=== PATIENT | male | born 1960 | race Caucasian/White ===

== ENCOUNTER 2019-01-01 19:00 | Emergency (ER) | payer BC, SELFPAY ==
[2019-01-01 19:01] VITALS: BP 140/85; PULSE 88; RESP 16; TEMP 36.1; O2SAT 99; BMI 29.5
--- NOTE | 2019-01-01 19:05 | RAD_ITS ---
STUDY: X-RAY - LEFT FOOT CLINICAL: Male, 58 years old. Lateral foot pain TECHNIQUE: 3 view(s) of the foot. COMPARISON: None. FINDINGS: Normal talus, calcaneus, and tarsal bones. Normal visualized subtalar, talonavicular, calcaneocuboid, tarsal and tarsometatarsal articulations. Normal metatarsi. Normal metatarsophalangeal joint of the great toe. Normal tibial and fibular sesamoid bones. Normal interphalangeal joint of the great toe. Normal phalanges of the great toe. Normal second through fifth metatarsophalangeal joints. Normal interphalangeal joints and phalanges of the lesser toes. The soft tissue structures are unremarkable. RAD/Foot min 3 Views IMPRESSION: Normal x-ray examination of the foot. Electronically Signed: Jair Millard MD at 19:27 EDT , Service support ,
--- NOTE | 2019-01-01 19:06 | ED.VIS.GEN ---
History of Present Illness Chief Complaint: Lower Extremity Injury Informant: Patient Onset: Yesterday Context: Gradual Onset Timing: Continuous Current Severity: Moderate Maximum Severity: Moderate Narrative: The patient presents to the emergency department for left foot pain. Patient states yesterday, he had a dull ache on the lateral aspect of his foot. He states he went to work overnight. He states that the foot was throbbing. Today, the pain had worsened. He has not taken anything for it. He has a history of gout, but states he has had it in the toe, but never in the foot. He cannot recall any definitive trauma. The patient is otherwise healthy. Prior similar symptoms: Yes Recent Illness/Hospitalization: No Past Medical History - Allergies and Home Meds Allergies/Adverse Reactions: Allergies tetracycline Allergy (Verified 01/01/19 19:01) Hives Primary Care Physician: Don Prakash MD [Primary Care Provider] - Prior records reviewed: Yes Past Medical History: None Surgical History: no surgical history Review of Systems General: Denies: Chills, Fever, Sweats Eyes: Denies: Visual changes - bilaterally, Diplopia ENT: Denies: Rhinorrhea, Sore throat Cardiovascular: Denies: Chest pain, Palpitations Respiratory: Denies: Dyspnea, Cough, Dyspnea on exertion Gastrointestinal: Denies: Abdominal pain, Nausea, Vomiting, Diarrhea, Melena, Hematochezia Genitourinary: Denies: Dysuria, Hematuria, Frequency Musculoskeletal: Denies: Back pain, Extremity Pain Skin: Denies: Rash, Wounds Neurological: Denies: Headache, Weakness, Numbness Physical Exam Vital Signs/Narrative: Vital Signs Temp Pulse Resp BP Pulse Ox 01/01/19 19:01 97 F L 88 16 140/85 H 99 Inital Vital Signs reviewed: Yes General: Well nourished, Well developed, No Acute Distress Head: Normocephalic, Atraumatic Eyes: Perrl, EOMI ENT: Moist mucous membranes, No rhinorrhea Neck: Supple, Nontender Cardiovascular: Regular rate, Regular rhythm, No murmurs Respiratory: No distress, CTA bilaterally, Chest nontender Abdomen: Soft, Nontender, Nondistended, Normal bowel sounds Back: Nontender, Normal Inspection Extremities: Tenderness, Edema - Mild erythema on the lateral aspect of the left foot. Normal pulses. Skin is intact. No streaking. Calves are soft. Skin: Normal color, No rash Neurological: Alert, Oriented x3, Cranial nerves II-XII grossly intact, Normal Strength, Normal Sensation Psychological: Normal affect, Normal Mood Diagnostic/Tx/Re-eval Clinical Impression(s) from Imaging Studies Foot X-Ray 01/01/19 19:05 IMPRESSION: Normal x-ray examination of the foot. Electronically Signed: Jair Millard MD at 19:27 EDT , Service support , - Medical Decision Making The patient symptoms do seem consistent with gout. He has no trauma. I did obtain plain films. These were unremarkable. I am going to treat the patient with prednisone and analgesics. I did counselor aid him concerning symptoms and reasons to return. He will be discharged home. Impression 1. Acute gouty arthritis of the left foot ED Disposition - Plan for ED Patient: Disposition: Home or Assisted Living Instructions: Gouty Arthritis Prescriptions: Prednisone [Deltasone] 60 mg PO DAILY #15 tab Prescription Printed Hydrocodone Bitart/Apap 5-325 [[place] 5MG-325MG] 1 tab PO Q6H PRN PRN 3 Days #10 tab PRN Reason: Pain Prescription Printed Referrals: Don Prakash MD [Primary Care Provider] -
[2019-01-01] MEDS: predniSONE 20 MG Tablet 60 MG PO (20:07)
[2019-01-01 20:10] VITALS: BP 136/84; PULSE 82; RESP 17; O2SAT 98
== END 2019-01-01 20:11 | disposition home or self-care (01) ==
LOC: ED 19:34
PROVIDERS: Emergency Provider Emergency Medicine; Family Provider Family Medicine; PCP Family Medicine
DX: M10.9 Gout, unspecified (principal)
CPT/HCPCS: 73630; 99283

== ENCOUNTER 2019-07-31 19:12 | Emergency (ER) | payer BC, SELFPAY ==
[2019-07-31 19:14] VITALS: BP 119/71; PULSE 91; RESP 15; TEMP 35.6; O2SAT 97; BMI 30.3
--- NOTE | 2019-07-31 19:41 | ED.VISSUMM ---
- ER Visit Summary Date of Service: 07/31/19 Chief Complaint: Dental pain History of Present Illness: The patient is a 58 M presenting with right lower dental pain which started today. He states he felt his filling fall out 2 weeks ago. He started having pain in his right lower molar today. He was unable to get into his dentist today. He has not taken any medication prior to arrival. He denies fever or swelling. Denies other complaints. Physical Examination: Vitals are stable. Patient is afebrile. Alert no acute distress. HEENT exam is right lower molar filling dislodged. There is no surrounding fluctuance. No sublingual edema. Neck is supple. Lungs are clear and equal bilaterally. Heart is regular rate and rhythm. Extremities are unremarkable. Skin is warm and dry. Remainder of exam is unremarkable. Emergency Department Course and Treatment: Cavit was applied. Patient had improvement of his pain. He is given a short course of [place]. Advised to follow-up with his dentist tomorrow. Advised return to the ED for worsening complaints. Disposition: Discharge home Impression: Odontalgia This note was generated with [employer] dictation software. It may contain incorrect words, spelling, and punctuation that were not noted in review of the chart prior to signing ED Disposition - Plan for ED Patient: Referrals: Don Prakash MD [Primary Care Provider] -
--- NOTE | 2019-07-31 19:44 | ED.DEP ---
ED Disposition - Plan for ED Patient: Instructions: ED Tooth Pain Prescriptions: Hydrocodone Bitart/Apap 5-325 [[place] 5MG-325MG] 1 tablet PO Q4H PRN PRN 2 Days #6 tablet PRN Reason: Pain Referrals: Don Prakash MD [Primary Care Provider] -
[2019-07-31 19:55] VITALS: BP 120/70; PULSE 83; RESP 17; O2SAT 95
== END 2019-07-31 19:56 | disposition home or self-care (01) ==
LOC: ED 19:45
PROVIDERS: Emergency Provider Emergency Medicine; PCP Family Medicine
DX: K08.89 Other specified disorders of teeth and supporting structures (principal)
CPT/HCPCS: 99282

== ENCOUNTER 2021-03-05 10:54 | Emergency (ER) | payer BC, SELFPAY ==
[2021-03-05 10:55] VITALS: BP 110/71; PULSE 93; RESP 17; TEMP 36.1; O2SAT 100; BMI 28.3
--- NOTE | 2021-03-05 11:41 | EDS_ITS ---
HPI History of Present Illness Chief Complaint: Lower Extremity Injury Informant: patient Narrative Narrative: Patient has a right great toe pain. He states he has had gout before. This is the same toe he has had it in. He had asked the same. It sounds like he had some colchicine left over that he took about 2 or 3 days ago. This stopped the symptoms but then it came back. No fevers or chills. No spreading up the leg. No recent skin or dental infections. Motion or touching makes it worse. The meds he took at home made it better. He has been on steroids successfully before. [facility] Medical History (Updated 03/05/21 @ 11:[address] Steven Kahn MD) Gout Home Medications oxycodone-acetaminophen [Percocet] 1 tab PO Q6H PRN 2 Days #8 tab 03/05/21 [Rx Last Taken Unknown] prednisone 60 mg PO DAILY #15 tab 03/05/21 [Rx Last Taken Unknown] Allergy/AdvReac Type Severity Reaction Status Date / Time tetracycline Allergy Hives Verified 03/05/21 10:55 Social History Smoking Status: Never smoker ROS ROS ED Constitutional Constitutional ED: Denies chills, fever(s) or sweats ENT ENT ED: Denies sore throat Cardiovascular Cardiovascular: Denies chest pain Respiratory/Chest Respiratory/Chest: Denies cough Gastrointestinal Gastrointestinal: Denies nausea or vomiting Musculoskeletal Musculoskeletal: Reports arthralgias and other Details: See history of present illness. ; Denies back pain, myalgias or neck pain Integumentary Denies abscess or rash Neurologic Neurologic: Denies paresthesias or weakness Endocrine Endocrinology: Denies polydipsia or polyuria Hematologic/Lymphatic Hematologic/Lymphatic: Denies easy bleeding or easy bruising EXAM Physical Exam Const Vital Signs: 03/05/21 10:55 Temperature 96.9 F L Temperature Source Temporal Pulse Rate 93 Respiratory Rate 17 Blood Pressure 110/71 Blood Pressure Mean 84 Pulse Ox 100 Oxygen Delivery Method Room Air Positive well nourished and well developed General Appearance ED: well developed and NAD HEENT normocephalic and atraumatic Resp normal respiratory effort Back/Spine no CVA tenderness Lumbar Spine / Lower Back: Negative for lumbar spinal tenderness Extremity Extremity Narrative: There is some erythema and maybe slight swelling to his first MTP on the right. Is not warm to palpate though. No sign of abscess. This is the same spot he has had gout in several other times. General Extremety ED: Negative for cyanosis or edema General Extremity: Negative for cyanosis or edema Neuro oriented x3 Sensorium / Orientation: alert Psych mental status grossly normal Skin Skin Narrative: No laceration abrasion or abscess. Lesions: no lesions Rashes: no rashes MDM MDM MDM Narrative Medical decision making narrative: I will give the patient dose of colchicine here. We will get him started on steroids. He should keep the area warm. I will give him a few opioid pills. His online prescribing report shows a single prescription over a year ago. I do not think he is seeking narcotics. He should return with fevers chills swelling or other problems. Discharge Plan Triage Chief Complaint: Lower Extremity Injury ED Provider: Steven Kahn Dx/Rx/DC Orders Clinical Impression: Gout involving toe of right foot Instructions: ED Gout Prescriptions: New prednisone 20 MG tablet 60 mg PO DAILY Qty: 15 RF: 0 oxycodone-acetaminophen [Percocet] 5-325 mg tablet 1 tab PO Q6H PRN (Reason: pain) 2 Days Qty: 8 RF: 0 Primary Care Provider: Don Prakash Referrals: Don Prakash MD [Primary Care Provider] - 3-5 Days if not improving Disposition Disposition: Home, Self Care
[2021-03-05] MEDS: Colchicine 0.6 MG TABLET 1.2 MG PO (12:13)
[2021-03-05 12:15] VITALS: PULSE 96; RESP 17; O2SAT 100
== END 2021-03-05 12:16 | disposition home or self-care (01) ==
PROVIDERS: Emergency Provider Emergency Medicine; PCP Family Medicine
DX: M10.9 Gout, unspecified (principal)
CPT/HCPCS: 99283

== ENCOUNTER 2022-07-30 16:09 | Emergency (ER) | payer BC, SELFPAY ==
[2022-07-30 16:10] VITALS: BP 141/90; PULSE 95; RESP 16; TEMP 36.8; O2SAT 98; BMI 29.5
--- NOTE | 2022-07-30 16:47 | EX.ED.DYSGE1 ---
HPI <DHIRAJ Sanchez - Last Filed: 07/30/22 17:41> History of Present Illness Chief Complaint: Wound Narrative Narrative: Patient is a 61-year-old male with history of gout who presents to the emergency department with rash, concern for infection to the left leg. 2 weeks ago, patient was doing some yard work, he is wearing shorts. He did get brushed by multiple twigs, branches to his left lower leg, he also was around poison john. Patient states that started with a rash, however now he has significant redness, open sores to his left lower extremity. He also has significant swelling to his left lower leg. Patient denies any fevers however did have subjective chills 1 week ago. He was working all day today, and states that the pain is getting worse. <Dr. Joselo León DO - Last Filed: 07/30/22 23:57> Narrative Narrative: Patient is a 61-year-old male with history of gout who presents to the emergency department with rash, concern for infection to the left leg. 2 weeks ago, patient was doing some yard work, he is wearing shorts. He did get brushed by multiple twigs, branches to his left lower leg, he also was around poison john. Patient states that started with a rash, however now he has significant redness, open sores to his left lower extremity. He also has significant swelling to his left lower leg. Patient denies any fevers however did have subjective chills 1 week ago. He was working all day today, and states that the pain is getting worse. [facility] <DHIRAJ Sanchez - Last Filed: 07/30/22 17:41> [facility] Medical History (Updated 07/30/22 @ 17:38 by DHIRAJ Sanchez) Gout Home Medications oxycodone-acetaminophen 5 mg-325 mg tablet (Percocet) 1 tab PO Q6H PRN pain 2 days #8 tabs 03/05/21 [Rx Last Taken Unknown] prednisone 20 mg tablet 60 mg PO DAILY #15 tabs 03/05/21 [Rx Last Taken Unknown] cephalexin 500 mg capsule 500 mg PO Q6 10 days #40 CAPSULES 07/30/22 [Rx Last Taken Unknown] sulfamethoxazole 800 mg-trimethoprim 160 mg tablet (Bactrim DS) 1 tab PO BID 10 days #20 tabs 07/30/22 [Rx Last Taken Unknown] Allergy/AdvReac Type Severity Reaction Status Date / Time tetracycline Allergy Hives Verified 07/30/22 16:13 Social History Smoking Status: Never smoker ROS <Jeffery Arthurjessica POOL NURSE-C - Last Filed: 07/30/22 17:41> [facility] ED ROS Narrative Constitutional: Negative for fever, weight loss, weakness. Positive for chills Eyes: Negative for vision loss, vision change, double vision ENT: Negative for any sore throat, ear pain, congestion Cardiovascular: Negative for any chest pain, tightness, palpitations Respiratory: Negative for any cough, sputum production, hemoptysis, dyspnea, dyspnea on exertion, orthopnea Gastrointestinal: Negative for any abdominal pain, nausea, vomiting, diarrhea, constipation, blood in stool, blood in vomit : Negative for any urinary frequency, dysuria, retention, blood in urine Muscle skeletal: Negative for any muscle joint pain, stiffness, myalgias, arthralgias, neck pain, back pain. Positive left leg pain, left leg edema Neurological: Negative for any headache, syncope, numbness or tingling, dizziness Skin: Negative for any rashes, lumps, itching, abrasions, lacerations. Patient does have cellulitis, open sores throughout the anterior lower leg below the knee. Patient does have scabbed area to the left mid thigh, redness and edema. This is consistent with cellulitis. Patient also has a small area of rash to the lateral malleolus of the right leg however there is no significant redness. Patient has no neurological focal deficit. Psychiatric: Negative for any depression, anxiety, stress, suicidal ideation, homicidal ideation Hematologic: Negative for any easy bruising, excessive bruising, easy bleeding Allergies: Negative for any eczema, hives, rash <Dr. Joselo León DO - Last Filed: 07/30/22 23:57> ROS ED ROS Narrative Constitutional: Negative for fever, weight loss, weakness. Positive for chills Eyes: Negative for vision loss, vision change, double vision ENT: Negative for any sore throat, ear pain, congestion Cardiovascular: Negative for any chest pain, tightness, palpitations Respiratory: Negative for any cough, sputum production, hemoptysis, dyspnea, dyspnea on exertion, orthopnea Gastrointestinal: Negative for any abdominal pain, nausea, vomiting, diarrhea, constipation, blood in stool, blood in vomit : Negative for any urinary frequency, dysuria, retention, blood in urine Muscle skeletal: Negative for any muscle joint pain, stiffness, myalgias, arthralgias, neck pain, back pain. Positive left leg pain, left leg edema Neurological: Negative for any headache, syncope, numbness or tingling, dizziness Skin: negative for lumps, itching, abrasions, lacerations. Patient does have cellulitis, open sores throughout the anterior lower leg below the knee. Patient does have scabbed area to the left mid thigh, redness and edema. This is consistent with cellulitis. Patient also has a small area of rash to the lateral malleolus of the right leg however there is no significant redness. Patient has no neurological focal deficit. Psychiatric: Negative for any depression, anxiety, stress, suicidal ideation, homicidal ideation Hematologic: Negative for any easy bruising, excessive bruising, easy bleeding Allergies: Negative for any eczema, hives, rash EXAM <DHIRAJ Sanchez - Last Filed: 07/30/22 17:41> Physical Exam Narrative Exam Narrative: Vital signs reviewed. HEET: Head normocephalic atraumatic, TMs clear bilaterally. Posterior pharynx is clear, moist mucous membranes. Nares clear bilaterally. Neck: Supple with no lymphadenopathy or tenderness. No signs of meningismus, negative jolt sign. Cardiac: Regular rate and rhythm no murmurs gallops or rubs, equal peripheral pulses bilaterally. Respiratory: Lungs clear to auscultation bilaterally. No chest tenderness. Abdomen: Soft, nontender, nondistended. No abdominal bruit or pulsatile masses. No hepatosplenomegaly Extremities: Patient has significant cellulitis to the anterior lower extremity with ulcerations. This redness does spread past the knee, into the groin. It is circumferential. No neurological focal deficit. There is drainage from the ulcers. There is an area of scabs to the left lateral leg just above the knee. There is significant difference between the left and right leg.. Active full range of motion of all extremities. Neuro: Cranial nerves II through XII intact, no focal neurological deficits. Skin: Clean dry and intact with no rash, purpura, petechiae, vesicles or pustules. Backs/flank: No CVA tenderness, no midline spinal tenderness, no deformity. Psych: Normal mood and affect. No SI, HI or acute psychosis. Const Vital Signs: 07/30/22 16:10 07/30/22 17:54 Temperature 98.3 F 97.8 F Temperature Source Temporal Pulse Rate 95 78 Respiratory Rate 16 16 Blood Pressure 141/90 H 134/78 H Blood Pressure Mean 107 Pulse Ox 98 99 Oxygen Delivery Method Room Air <Dr. Joselo León DO - Last Filed: 07/30/22 23:57> Physical Exam Narrative Exam Narrative: Vital signs reviewed. HEET: Head normocephalic atraumatic, TMs clear bilaterally. Posterior pharynx is clear, moist mucous membranes. Nares clear bilaterally. Neck: Supple with no lymphadenopathy or tenderness. No signs of meningismus, negative jolt sign. Cardiac: Regular rate and rhythm no murmurs gallops or rubs, equal peripheral pulses bilaterally. Respiratory: Lungs clear to auscultation bilaterally. No chest tenderness. Abdomen: Soft, nontender, nondistended. No abdominal bruit or pulsatile masses. No hepatosplenomegaly Extremities: Patient has significant cellulitis to the anterior lower extremity with ulcerations. This redness does spread past the knee, into the groin. It is circumferential. No neurological focal deficit. There is drainage from the ulcers. There is an area of scabs to the left lateral leg just above the knee. There is significant difference between the left and right leg.. Active full range of motion of all extremities. Neuro: Cranial nerves II through XII intact, no focal neurological deficits. Skin: Please refer to attending exam Backs/flank: No CVA tenderness, no midline spinal tenderness, no deformity. Psych: Normal mood and affect. No SI, HI or acute psychosis. Const Vital Signs: 07/30/22 16:10 07/30/22 17:54 Temperature 98.3 F 97.8 F Temperature Source Temporal Pulse Rate 95 78 Respiratory Rate 16 16 Blood Pressure 141/90 H 134/78 H Blood Pressure Mean 107 Pulse Ox 98 99 Oxygen Delivery Method Room Air MDM <DHIRAJ Sanchez - Last Filed: 07/30/22 17:41> [facility] Lab Data Attestation: I reviewed the patient's lab results. Labs: Laboratory Results - last 24 hr 07/30/22 07/30/22 16:35 16:35 WBC 8.7 RBC 4.46 L Hgb 12.5 L Hct 38.1 L MCV 85.4 MCH 28.0 MCHC 32.8 RDW Std Deviation 38.8 RDW Coeff of Aidan 12.4 Plt Count 261 MPV 10.1 Immature Gran % (Auto) 0.300 Neut % (Auto) 66.4 Lymph % (Auto) 17.1 L Towns % (Auto) 10.8 H Eos % (Auto) 4.7 Baso % (Auto) 0.7 Absolute Neuts (auto) 5.8 Absolute Lymphs (auto) 1.49 Nucleated RBC % 0 Sodium 137 Potassium 3.6 Chloride 108 H Carbon Dioxide 25.0 Anion Gap 4 L BUN 20 H Creatinine 0.82 Estim Creat Clear Calc 112.77 Est GFR (MDRD) Af Amer 124 Est GFR (MDRD) Non-Af 103 BUN/Creatinine Ratio 24.5 H Glucose 105 Calcium 8.5 Treatment and Re-Evaluation :: Patient appears generally well, patient appears nontoxic, vital signs are stable. Patient presents to the emergency department with concern for infection to the left leg. Patient's physical examination is consistent with significant infection to the left lower extremity that radiates from the foot all the way up to the inner thigh. I merely spoke with the patient regarding admission however he states he was unsure and wanted to see what his blood work would show. Patient's laboratory values were unremarkable, no new leukocytosis. Patient meets no SIRS criteria. Patient did receive IV fluids, IV Unasyn 3 g. After laboratory values returned, I did speak with the patient at length. I spoke with the patient regarding the need for admission. I told him that there are risks of leaving with an infection. I spoke with the patient being admitted getting IV antibiotics. We used shared decision making, patient states he would like to go home, he does not live far and if he gets worse he will come right back. I did explain to the patient that he is risking his leg, his health regarding leaving without IV antibiotics. He verbally understood. He understands that he should stay however he wants to go home. At this time, the patient be placed on Bactrim, Keflex. He is instructed to return for any worsening signs or symptoms of infection. Patient discharged. <Dr. Joselo León, DO - Last Filed: 07/30/22 23:57> [facility] Lab Data Labs: Laboratory Results - last 24 hr 07/30/22 07/30/22 16:35 16:35 WBC 8.7 RBC 4.46 L Hgb 12.5 L Hct 38.1 L MCV 85.4 MCH 28.0 MCHC 32.8 RDW Std Deviation 38.8 RDW Coeff of Aidan 12.4 Plt Count 261 MPV 10.1 Immature Gran % (Auto) 0.300 Neut % (Auto) 66.4 Lymph % (Auto) 17.1 L Towns % (Auto) 10.8 H Eos % (Auto) 4.7 Baso % (Auto) 0.7 Absolute Neuts (auto) 5.8 Absolute Lymphs (auto) 1.49 Nucleated RBC % 0 Sodium 137 Potassium 3.6 Chloride 108 H Carbon Dioxide 25.0 Anion Gap 4 L BUN 20 H Creatinine 0.82 Estim Creat Clear Calc 112.77 Est GFR (MDRD) Af Amer 124 Est GFR (MDRD) Non-Af 103 BUN/Creatinine Ratio 24.5 H Glucose 105 Calcium 8.5 Treatment and Re-Evaluation :: Patient appears generally well, patient appears nontoxic, vital signs are stable. Patient presents to the emergency department with concern for infection to the left leg. Patient's physical examination is consistent with significant infection to the left lower extremity that radiates from the foot all the way up to the inner thigh. I merely spoke with the patient regarding admission however he states he was unsure and wanted to see what his blood work would show. Patient's laboratory values were unremarkable, no new leukocytosis. Patient meets no SIRS criteria. Patient did receive IV fluids, IV Unasyn 3 g. After laboratory values returned, I did speak with the patient at length. I spoke with the patient regarding the need for admission. I told him that there are risks of leaving with an infection. I spoke with the patient being admitted getting IV antibiotics. We used shared decision making, patient states he would like to go home, he does not live far and if he gets worse he will come right back. I did explain to the patient that he is risking his leg, his health regarding leaving without IV antibiotics. He verbally understood. He understands that he should stay however he wants to go home. At this time, the patient be placed on Bactrim, Keflex. He is instructed to return for any worsening signs or symptoms of infection. Patient discharged. ED attending note: I evaluated the patient in conjunction with the GUMARO.? I agree with his/her statements and above findings. I have personally performed a face to face assessment of the patient and have reviewed the [facility] Note. I performed a substantive portion of the visit including all aspects of the following.? I personally saw the patient performed chart review, physical exam, reviewed labs, imaging (if obtained), and formulated a treatment and management plan. Exam: Nursing triage notes reviewed, Vital signs reviewed Constitutional: please see mdm Lungs: Clear to auscultation,? No wheezing or rales.? No increased work of breathing, no conversational dyspnea, no accessory muscle use, no nasal flaring.? No respiratory distress noted Heart:? Regular rate and rhythm, No murmurs, No rubs and No gallops, 2+ distal pulses (radial, femoral, posterior tibial) in all extremities Abdomen: Soft, there is no tenderness, rigidity, rebound or guarding, no obvious peritoneal signs, no palpable pulsatile abdominal masses, no auscultated abdominal bruit : No CVAT Extremities: 2+ edema noted left lower extremity, compartments are soft, erythema noted essentially from the ankle to the mid thigh.? No obvious crepitus. Neuro: Intact sensation L1-S1 dermatomal distributions.? Intact 5/5 strength in hip flexion (T12-L3).? Knee extension (L2-L4).? Ankle dorsiflexion (L4-L5).? Ankle plantar flexion (S1).? Great toe extension (L5).? 2+ patellar and Achilles DTRs. Skin: Diffuse erythema, burst bullae, excoriations noted from the ankle to the mid thigh to the left lower extremity MDM/plan: Chief Complaint: External records reviewed: History of gout, last ED visit in 2020 I considered the following differential diagnosis: Cellulitis, necrotizing fasciitis, plant based contact dermatitis Patient did have burst bullae however there is no crepitus, his vitals were stable.? Symptoms have been ongoing for 1.5 weeks, there is no pain on proportion to exam to suggest necrotizing fasciitis.? Patient's clinical exam was likely secondary to poison john/poison oak or other plant based irritant with secondary cellulitic changes.? Did give IV antibiotics and offered patient admission given extent of cellulitis.? Shared decision making was undertaken.? Patient understood risk and benefits of admission versus discharge oral versus IV antibiotics and opted to forego admission and to start oral antibiotics with strict return precautions and close PCP follow-up. The patient was alert and oriented x3 and a capacity make his own medical decisions. Shared decision making: I had a long discussion with the patient and or visitors regarding risk/benefits of further testing or admission. They decided to forego any further testing or admission. They are aware of of the risk/benefits inherent in this decision and have voiced understanding. Factors affecting care: None Social determinants of health: None History obtained from others: None Consults: Possibly internal medicine if patient decides to be admitted. Discharge Plan Triage Chief Complaint: Wound ED Midlevel Provider: Jeffery Jorgensen ED Provider: Joselo León Dx/Rx/DC Orders Clinical Impression: Cellulitis, Leg ulcer Instructions: Cellulitis Dc, ED Cellulitis Prescriptions: New sulfamethoxazole-trimethoprim [Bactrim DS] 800-160 mg tablet 1 tab PO BID 10 Days Qty: 20 0RF cephalexin 500 mg capsule 500 mg PO Q6 10 Days Qty: 40 0RF No Action prednisone 20 MG tablet 60 mg PO DAILY Qty: 15 0RF oxycodone-acetaminophen [Percocet] 5-325 mg tablet 1 tab PO Q6H PRN (Reason: pain) 2 Days Qty: 8 0RF Primary Care Provider: Don Prakash Referrals: Don Prakash MD [Primary Care Provider] - Activity Restrictions/Additional Instructions: We discussed about admission. I did recommend admission however you would like to try it outpatient. Please take the antibiotics as prescribed. You must return to the emergency department for any worsening redness, pain, fever or chills. Take antibiotics until finished. Disposition Disposition: Home, Self Care Discharge Date/Time: 07/30/22 17:55
[2022-07-30] MEDS: 0.9% Normal Saline 1,000 ML 1000 ML IV (16:53)
--- NOTE | 2022-07-30 17:05 | EDS_ITS ---
HPI History of Present Illness Chief Complaint: Wound [facility] Medical History Gout Home Medications oxycodone-acetaminophen 5 mg-325 mg tablet (Percocet) 1 tab PO Q6H PRN pain 2 da ys #8 tabs 03/05/21 [Rx Last Taken Unknown] prednisone 20 mg tablet 60 mg PO DAILY #15 tabs 03/05/21 [Rx Last Taken Unknown] Allergy/AdvReac Type Severity Reaction Status Date / Time tetracycline Allergy Hives Verified 07/30/22 16:13 Social History Smoking Status: Never smoker EXAM Physical Exam Const Vital Signs: 07/30/22 16:10 Temperature 98.3 F Temperature Source Temporal Pulse Rate 95 Respiratory Rate 16 Blood Pressure 141/90 H Blood Pressure Mean 107 Pulse Ox 98 Oxygen Delivery Method Room Air MDM [facility] Treatment and Re-Evaluation :: ED attending note: I evaluated the patient in conjunction with the [facility]. I agree with his/her statements and above findings. I have personally performed a face to face assessment of the patient and have reviewed the [facility] Note. I performed a substantive portion of the visit including all aspects of the following. I personally saw the patient performed chart review, physical exam, reviewed labs, imaging (if obtained), and formulated a treatment and management plan. Exam: Nursing triage notes reviewed, Vital signs reviewed Constitutional: please see mdm Lungs: Clear to auscultation, No wheezing or rales. No increased work of breathing, no conversational dyspnea, no accessory muscle use, no nasal flaring. No respiratory distress noted Heart: Regular rate and rhythm, No murmurs, No rubs and No gallops, 2+ distal pulses (radial, femoral, posterior tibial) in all extremities Abdomen: Soft, there is no tenderness, rigidity, rebound or guarding, no obvious peritoneal signs, no palpable pulsatile abdominal masses, no auscultated abdominal bruit : No CVAT Extremities: 2+ edema noted left lower extremity, compartments are soft, erythema noted essentially from the ankle to the mid thigh. No obvious crepitus. Neuro: Intact sensation L1-S1 dermatomal distributions. Intact 5/5 strength in hip flexion (T12-L3). Knee extension (L2-L4). Ankle dorsiflexion (L4-L5). Ankle plantar flexion (S1). Great toe extension (L5). 2+ patellar and Achilles DTRs. Skin: Diffuse erythema, burst bullae, excoriations noted from the ankle to the mid thigh to the left lower extremity MDM/plan: Chief Complaint: External records reviewed: History of gout, last ED visit in 2020 I considered the following differential diagnosis: Cellulitis, necrotizing fasciitis, plant based contact dermatitis Patient did have burst bullae however there is no crepitus, his vitals were stable. There is no pain on proportion to exam to suggest necrotizing fasciitis. Patient's clinical exam was likely secondary to poison john/poison oak or other plant based irritant with secondary cellulitic changes. Did give IV antibiotics and offered patient admission given extent of cellulitis. Shared decision making was undertaken. Patient understood risk and benefits of admission versus discharge oral versus IV antibiotics and opted to forego admission and to start oral antibiotics with strict return precautions and close PCP follow-up Factors affecting care: None Social determinants of health: None History obtained from others: None Shared decision making: I will have a discussion with the patient and or visitors regarding risk/benefits of further testing or admission. They will be made aware of of the risk/benefits inherent in this decision they will be given the opportunity to voice understanding. Consults: Possibly internal medicine if patient decides to be admitted. Discharge Plan Triage Chief Complaint: Wound ED Midlevel Provider: Jeffery Jorgensen ED Provider: Joselo León Dx/Rx/DC Orders Prescriptions: No Action prednisone 20 MG tablet 60 mg PO DAILY Qty: 15 0RF oxycodone-acetaminophen [Percocet] 5-325 mg tablet 1 tab PO Q6H PRN (Reason: pain) 2 Days Qty: 8 0RF Primary Care Provider: Don Prakash Referrals: Dno Prakash MD [Primary Care Provider] -
[2022-07-30 17:06] LABS: Absolute Lymphocyte Count 1.49 X10^3/uL (0.83-4.51); Absolute Neutrophil Count 5.8 X10^3/uL (2.0-7.7); Basophil# 0.06 X10^3/uL; Basophil% 0.7 % (0-1); Eosinophil# 0.41 X10^3/uL; Eosinophils% 4.7 % (0-5); Hematocrit 38.1 % (40-54); Hemoglobin 12.5 g/dL (13.0-16.5); Lymphocyte # 1.49 X10^3/ul (0.83-4.51); Lymphocyte % 17.1 % (19-41); Mean Corp Hgb Conc 32.8 g/dL (32-36); Mean Corpuscular Volume 85.4 fL (80-94); Mean Platelet Vol. 10.1 fl (6.2-12.0); Monocyte# 0.94 X10^3/uL; Monocyte% 10.8 % (0-10); NRBC Flagged by Analyzer 0 % (0-5); Neutrophil # 5.76 X10^3/uL (2.7-7.7); Neutrophil % 66.4 % (47-70); Platelet Count 261 K/mm3 (150-450); RBC Distribution Width CV 12.4 % (11.6-14.6); RBC Distribution Width SD 38.8 fl (35.1-43.9); Red Blood Count 4.46 M/mm3 (4.6-6.2); White Blood Count 8.7 K/mm3 (4.4-11.0)
[2022-07-30 17:15] LABS: Anion Gap 4 (5-15); BUN 20 mg/dL (7-18); BUN/Creat Ratio 24.5 RATIO (10-20); Calcium,Total 8.5 mg/dL (8.5-10.1); Chloride 108 mmol/L (98-107); Creatinine, Serum 0.82 mg/dL (0.70-1.30); EST Glomerular Filtration Rate 103 mL/min (>60); Est Glom Filt Rate - Afr Amer 124 mL/min (>60); Estimated Creatinine Clearance 112.77 ml/min; Glucose 105 mg/dL (74-106); Potassium 3.6 mmol/L (3.5-5.1); Sodium Level 137 mmol/L (136-145)
[2022-07-30 17:54] VITALS: BP 134/78; PULSE 78; RESP 16; TEMP 36.6; O2SAT 99
== END 2022-07-30 17:55 | disposition home or self-care (01) ==
PROVIDERS: Nurse Practitioner; Emergency Provider Emergency Medicine; PCP Family Medicine; Visit Provider Emergency Medicine
DX: L03.116 Cellulitis of left lower limb (principal); L97.929 Non-pressure chronic ulcer of unspecified part of left lower leg with unspecified severity
CPT/HCPCS: 80048; 85025; 96365; 99283; J7030; J0295